=== PATIENT | male | born 1960 | race Caucasian/White ===

== ENCOUNTER 2020-12-04 13:40 | Inpatient (IN) | payer OTHER ==
[~2020-12-04] VITALS: Ht 170.2 cm; Wt 65.5 kg
[2020-12-04] MEDS ORDERED: ACETAMINOPHEN 325 MG TABLET PO PRN (15:30)
[2020-12-04] MEDS ORDERED: DEXTROSE 50%-WATER 25 GM/50 ML SYRINGE IVP PRN (15:45)
[2020-12-04 16:00] VITALS: BP 160/93
[2020-12-04 16:52] VITALS: BP 160/93
[2020-12-04 18:51] LABS: GLUCOMETER DEV NAME(LOC) 2WR.1C; GLUCOSE,POINT OF CARE 132 MG/DL (70-110)
[2020-12-04 19:07] VITALS: BP 152/85
[2020-12-04] MEDS ORDERED: PNEUMOCOCCAL VACCINE POLYVALENT 0.5 ML VIAL [PPSV23] IM. ONE (20:45)
[2020-12-04] MEDS: SENNA 187 MG TABLET PO SCH (21:00)
[2020-12-04] MEDS: DOCUSATE SODIUM 100 MG CAPSULE PO SCH ×2 (21:00→21:25)
[2020-12-04 21:18] VITALS: BP 151/85
[2020-12-04] MEDS: CARVEDILOL 25 MG TABLET PO SCH (21:23)
[2020-12-04] MEDS: PANTOPRAZOLE SODIUM 40 MG DR TABLET PO SCH (21:24)
[2020-12-04] MEDS: ATORVASTATIN CALCIUM 40 MG TABLET PO SCH (21:25)
[2020-12-04] MEDS: INSULIN LISPRO 100 UNITS/ML SQ PRN (21:27)
[2020-12-04] MEDS: INSULIN GLARGINE,HUM.REC.ANLOG 100 UNITS/ML SQ SCH (21:28)
[2020-12-05 02:28] VITALS: BP 153/84
[2020-12-05 05:04] LABS: GLUCOMETER DEV NAME(LOC) 2WR.1C; GLUCOSE,POINT OF CARE 194 MG/DL (70-110)
[2020-12-05 06:28] LABS: GLUCOMETER DEV NAME(LOC) 2WR.2B; GLUCOSE,POINT OF CARE 138 MG/DL (70-110)
[2020-12-05 08:35] LABS: BASOPHILS % (AUTO) 0.7 % (0.0-2.0); EOSINOPHILS % (AUTO) 2.8 % (1.0-6.0); HEMATOCRIT 25.9 % (41-53); HEMOGLOBIN 8.6 g/dL (13.5-17.5); LYMPHOCYTES # (AUTO) 1.6 K/uL (1.0-4.8); LYMPHOCYTES % (AUTO) 26.8 % (22.0-44.0); MEAN CORPUSCULAR HEMOGLOBIN 30.2 pg (26.0-34.0); MEAN CORPUSCULAR HGB CONC 33.3 G/dL (31.0-37.0); MEAN CORPUSCULAR VOLUME 91 fL (80-100); MONOCYTES # (AUTO) 0.6 K/uL (0.1-1.0); MONOCYTES % (AUTO) 9.6 % (2.0-9.0); NEUTROPHILS # (AUTO) 3.6 K/uL (1.8-7.7); NEUTROPHILS % (AUTO) 60.1 % (40.0-70.0); PLATELET COUNT (AUTO) 199 K/uL (150-450); RED BLOOD CELL COUNT(AUTO) 2.85 MIL/uL (4.50-5.90); RED CELL DISTRIBUTION WIDTH 13.3 % (11.5-14.5)
[2020-12-05 08:49] VITALS: BP 150/83
[2020-12-05] MEDS: DOCUSATE SODIUM 100 MG CAPSULE PO SCH ×2 (08:51→20:45)
[2020-12-05] MEDS: VALSARTAN 160 MG TABLET PO SCH (08:51)
[2020-12-05] MEDS: CLOPIDOGREL BISULFATE 75 MG TABLET PO SCH (08:51)
[2020-12-05] MEDS: NIFEdipine 30 MG ER TABLET PO SCH (08:51)
[2020-12-05] MEDS: CARVEDILOL 25 MG TABLET PO SCH ×2 (08:51→20:45)
[2020-12-05 08:53] LABS: ALBUMIN 3.2 g/dL (3.4-5.0); BILIRUBIN,TOTAL 0.3 mg/dL (0.1-1.0); CALCIUM, TOTAL 8.3 mg/dL (8.8-10.5); CREATININE 6.7 mg/dL (0.60-1.30); POTASSIUM 3.6 mmol/L (3.5-5.1); TOTAL PROTEIN, SERUM 6.9 g/dL (6.4-8.2)
[2020-12-05 13:39] LABS: GLUCOMETER DEV NAME(LOC) 2WR.2B; GLUCOSE,POINT OF CARE 136 MG/DL (70-110)
[2020-12-05] MEDS: HEPARIN SODIUM,PORCINE 5,000 UNITS/ML VIAL SQ SCH ×2 (15:03→20:46)
[2020-12-05 16:00] VITALS: BP 134/75
[2020-12-05] MEDS: INSULIN LISPRO 100 UNITS/ML SQ PRN ×2 (17:46→21:14)
[2020-12-05 17:52] LABS: GLUCOMETER DEV NAME(LOC) 2WR.2B; GLUCOSE,POINT OF CARE 167 MG/DL (70-110)
[2020-12-05] MEDS: SENNA 187 MG TABLET PO SCH (20:45)
[2020-12-05] MEDS: ATORVASTATIN CALCIUM 40 MG TABLET PO SCH (20:45)
[2020-12-05] MEDS: PANTOPRAZOLE SODIUM 40 MG DR TABLET PO SCH (20:45)
[2020-12-05 20:55] VITALS: BP 165/90
[2020-12-05 20:59] LABS: GLUCOMETER DEV NAME(LOC) 2WR.2B; GLUCOSE,POINT OF CARE 186 MG/DL (70-110)
[2020-12-05] MEDS: HydrALAZINE HCL 10 MG TABLET PO PRN (20:59)
[2020-12-05] MEDS: INSULIN GLARGINE,HUM.REC.ANLOG 100 UNITS/ML SQ SCH (21:13)
[2020-12-05 23:53] VITALS: BP 155/85
[2020-12-06 08:01] VITALS: BP 154/80
[2020-12-06] MEDS: CARVEDILOL 25 MG TABLET PO SCH ×2 (09:46→20:51)
[2020-12-06] MEDS: CLOPIDOGREL BISULFATE 75 MG TABLET PO SCH (09:46)
[2020-12-06] MEDS: DOCUSATE SODIUM 100 MG CAPSULE PO SCH ×2 (09:46→20:48)
[2020-12-06] MEDS: NIFEdipine 30 MG ER TABLET PO SCH (09:46)
[2020-12-06] MEDS: VALSARTAN 160 MG TABLET PO SCH (09:46)
[2020-12-06] MEDS: HEPARIN SODIUM,PORCINE 5,000 UNITS/ML VIAL SQ SCH ×3 (09:47→20:48)
[2020-12-06 12:33] LABS: GLUCOMETER DEV NAME(LOC) 2WR.1C; GLUCOSE,POINT OF CARE 110 MG/DL (70-110)
[2020-12-06 12:33] LABS: GLUCOMETER DEV NAME(LOC) 2WR.1C; GLUCOSE,POINT OF CARE 121 MG/DL (70-110)
[2020-12-06 16:17] VITALS: BP 135/65
[2020-12-06 18:21] LABS: GLUCOMETER DEV NAME(LOC) 2WR.2B; GLUCOSE,POINT OF CARE 169 MG/DL (70-110)
[2020-12-06] MEDS: INSULIN LISPRO 100 UNITS/ML SQ PRN (18:30)
[2020-12-06] MEDS: ATORVASTATIN CALCIUM 40 MG TABLET PO SCH (20:48)
[2020-12-06] MEDS: PANTOPRAZOLE SODIUM 40 MG DR TABLET PO SCH (20:48)
[2020-12-06 20:50] VITALS: BP 153/86
[2020-12-06] MEDS: SENNA 187 MG TABLET PO SCH (20:53)
[2020-12-06] MEDS: INSULIN GLARGINE,HUM.REC.ANLOG 100 UNITS/ML SQ SCH (20:53)
[2020-12-06 23:29] VITALS: BP 150/78
[2020-12-07 05:14] LABS: GLUCOMETER DEV NAME(LOC) 2WR.1C; GLUCOSE,POINT OF CARE 131 MG/DL (70-110)
[2020-12-07 06:17] LABS: GLUCOMETER DEV NAME(LOC) 2WR.1C; GLUCOSE,POINT OF CARE 108 MG/DL (70-110)
[2020-12-07] MEDS: VALSARTAN 160 MG TABLET PO SCH (07:52)
[2020-12-07] MEDS: NIFEdipine 30 MG ER TABLET PO SCH (07:52)
[2020-12-07] MEDS: CLOPIDOGREL BISULFATE 75 MG TABLET PO SCH (07:52)
[2020-12-07] MEDS: DOCUSATE SODIUM 100 MG CAPSULE PO SCH ×2 (07:52→20:58)
[2020-12-07] MEDS: CARVEDILOL 25 MG TABLET PO SCH ×2 (07:52→20:58)
[2020-12-07] MEDS: HEPARIN SODIUM,PORCINE 5,000 UNITS/ML VIAL SQ SCH ×3 (07:53→20:58)
[2020-12-07 09:51] VITALS: BP 133/79
[2020-12-07 13:05] LABS: GLUCOMETER DEV NAME(LOC) 2WR.1C; GLUCOSE,POINT OF CARE 134 MG/DL (70-110)
[2020-12-07 16:50] VITALS: BP 132/77
[2020-12-07] MEDS: INSULIN LISPRO 100 UNITS/ML SQ PRN (17:40)
[2020-12-07 19:51] LABS: GLUCOMETER DEV NAME(LOC) 2WR.1C; GLUCOSE,POINT OF CARE 163 MG/DL (70-110)
[2020-12-07 20:30] VITALS: BP 165/85
[2020-12-07] MEDS: SENNA 187 MG TABLET PO SCH (20:58)
[2020-12-07] MEDS: ATORVASTATIN CALCIUM 40 MG TABLET PO SCH (20:58)
[2020-12-07] MEDS: PANTOPRAZOLE SODIUM 40 MG DR TABLET PO SCH (20:58)
[2020-12-07] MEDS: INSULIN GLARGINE,HUM.REC.ANLOG 100 UNITS/ML SQ SCH (21:04)
[2020-12-07 21:35] LABS: GLUCOMETER DEV NAME(LOC) 2WR.2B; GLUCOSE,POINT OF CARE 100 MG/DL (70-110)
[2020-12-08 00:45] VITALS: BP 184/90
[2020-12-08] MEDS: HydrALAZINE HCL 10 MG TABLET PO PRN ×2 (00:47→23:06)
[2020-12-08 03:30] VITALS: BP 152/87
[2020-12-08] MEDS: NIFEdipine 30 MG ER TABLET PO SCH (07:57)
[2020-12-08] MEDS: CLOPIDOGREL BISULFATE 75 MG TABLET PO SCH (07:57)
[2020-12-08] MEDS: HEPARIN SODIUM,PORCINE 5,000 UNITS/ML VIAL SQ SCH ×3 (07:57→22:13)
[2020-12-08] MEDS: CARVEDILOL 25 MG TABLET PO SCH ×2 (07:57→22:12)
[2020-12-08] MEDS: VALSARTAN 160 MG TABLET PO SCH (07:57)
[2020-12-08] MEDS: DOCUSATE SODIUM 100 MG CAPSULE PO SCH ×2 (07:59→22:11)
[2020-12-08 08:03] VITALS: BP 180/92
[2020-12-08 09:00] VITALS: BP 129/68
[2020-12-08 16:15] LABS: GLUCOMETER DEV NAME(LOC) 2WR.1C; GLUCOSE,POINT OF CARE 104 MG/DL (70-110)
[2020-12-08 16:15] LABS: GLUCOMETER DEV NAME(LOC) 2WR.1C; GLUCOSE,POINT OF CARE 137 MG/DL (70-110)
[2020-12-08 17:08] VITALS: BP 137/78
[2020-12-08 17:43] LABS: GLUCOMETER DEV NAME(LOC) 2WR.2B; GLUCOSE,POINT OF CARE 156 MG/DL (70-110)
[2020-12-08] MEDS: SENNA 187 MG TABLET PO SCH (22:11)
[2020-12-08] MEDS: PANTOPRAZOLE SODIUM 40 MG DR TABLET PO SCH (22:12)
[2020-12-08] MEDS: ATORVASTATIN CALCIUM 40 MG TABLET PO SCH (22:12)
[2020-12-08] MEDS: INSULIN GLARGINE,HUM.REC.ANLOG 100 UNITS/ML SQ SCH (22:22)
[2020-12-08] MEDS: INSULIN LISPRO 100 UNITS/ML SQ PRN (22:23)
[2020-12-08 22:33] LABS: GLUCOMETER DEV NAME(LOC) 2WR.1C; GLUCOSE,POINT OF CARE 153 MG/DL (70-110)
[2020-12-08 23:00] VITALS: BP 162/99
[2020-12-09] VITALS (7 sets, daily range): BP systolic 153–172; BP diastolic 58–98
[2020-12-09 05:57] LABS: GLUCOMETER DEV NAME(LOC) 2WR.1C; GLUCOSE,POINT OF CARE 167 MG/DL (70-110)
[2020-12-09] MEDS: NIFEdipine 30 MG ER TABLET PO SCH (08:03)
[2020-12-09] MEDS: HEPARIN SODIUM,PORCINE 5,000 UNITS/ML VIAL SQ SCH ×3 (08:03→20:08)
[2020-12-09] MEDS: CARVEDILOL 25 MG TABLET PO SCH ×2 (08:03→20:08)
[2020-12-09] MEDS: VALSARTAN 160 MG TABLET PO SCH ×2 (08:03→13:03)
[2020-12-09] MEDS: CLOPIDOGREL BISULFATE 75 MG TABLET PO SCH (08:03)
[2020-12-09] MEDS: INSULIN LISPRO 100 UNITS/ML SQ PRN ×2 (08:05→17:27)
[2020-12-09] MEDS: DOCUSATE SODIUM 100 MG CAPSULE PO SCH ×2 (08:06→20:08)
[2020-12-09] MEDS: CITALOPRAM HYDROBROMIDE 10 MG TABLET PO SCH (13:06)
[2020-12-09 15:19] LABS: GLUCOMETER DEV NAME(LOC) 2WR.2B; GLUCOSE,POINT OF CARE 112 MG/DL (70-110)
[2020-12-09] MEDS: FUROSEMIDE 20 MG TABLET PO SCH (16:22)
[2020-12-09 18:18] LABS: GLUCOMETER DEV NAME(LOC) 2WR.1C; GLUCOSE,POINT OF CARE 141 MG/DL (70-110)
[2020-12-09] MEDS: ATORVASTATIN CALCIUM 40 MG TABLET PO SCH (20:08)
[2020-12-09] MEDS: PANTOPRAZOLE SODIUM 40 MG DR TABLET PO SCH (20:08)
[2020-12-09] MEDS: SENNA 187 MG TABLET PO SCH (20:09)
[2020-12-09] MEDS: INSULIN GLARGINE,HUM.REC.ANLOG 100 UNITS/ML SQ SCH (20:17)
[2020-12-09] MEDS: HydrALAZINE HCL 10 MG TABLET PO PRN (22:25)
[2020-12-10 01:07] LABS: GLUCOMETER DEV NAME(LOC) 2WR.2B; GLUCOSE,POINT OF CARE 118 MG/DL (70-110)
[2020-12-10 04:00] VITALS: BP 178/98
[2020-12-10 05:00] VITALS: BP_SYST 178; BP_SYST 198; BP_DIAS 102
[2020-12-10] MEDS: HydrALAZINE HCL 10 MG TABLET PO PRN (05:36)
[2020-12-10 05:57] LABS: GLUCOMETER DEV NAME(LOC) 2WR.1C; GLUCOSE,POINT OF CARE 121 MG/DL (70-110)
[2020-12-10 06:27] VITALS: BP 178/94
[2020-12-10 06:49] LABS: CALCIUM, TOTAL 8.1 mg/dL (8.8-10.5); CREATININE 6.77 mg/dL (0.60-1.30); PHOSPHORUS 4.7 mg/dL (2.5-4.9); POTASSIUM 4.2 mmol/L (3.5-5.1)
[2020-12-10 07:18] LABS: % IRON SATURATION 30.4 % (30-44)
[2020-12-10] MEDS: VALSARTAN 160 MG TABLET PO SCH (08:36)
[2020-12-10] MEDS: CLOPIDOGREL BISULFATE 75 MG TABLET PO SCH (08:36)
[2020-12-10] MEDS: HEPARIN SODIUM,PORCINE 5,000 UNITS/ML VIAL SQ SCH ×3 (08:36→20:47)
[2020-12-10] MEDS: NIFEdipine 30 MG ER TABLET PO SCH (08:36)
[2020-12-10] MEDS: DOCUSATE SODIUM 100 MG CAPSULE PO SCH ×2 (08:36→20:48)
[2020-12-10] MEDS: CITALOPRAM HYDROBROMIDE 10 MG TABLET PO SCH (08:36)
[2020-12-10] MEDS: FUROSEMIDE 20 MG TABLET PO SCH (08:36)
[2020-12-10] MEDS: CARVEDILOL 25 MG TABLET PO SCH ×2 (08:41→20:48)
[2020-12-10 11:58] VITALS: BP 147/91
[2020-12-10 12:39] LABS: GLUCOMETER DEV NAME(LOC) 2WR.2B; GLUCOSE,POINT OF CARE 123 MG/DL (70-110)
[2020-12-10] MEDS: CALCITRIOL 0.25 MCG CAPSULE PO SCH (15:55)
[2020-12-10 16:30] VITALS: BP 141/89
[2020-12-10 17:54] LABS: GLUCOMETER DEV NAME(LOC) 2WR.2B; GLUCOSE,POINT OF CARE 139 MG/DL (70-110)
[2020-12-10 20:40] VITALS: BP 140/78
[2020-12-10] MEDS: ATORVASTATIN CALCIUM 40 MG TABLET PO SCH (20:47)
[2020-12-10] MEDS: SENNA 187 MG TABLET PO SCH (20:48)
[2020-12-10] MEDS: PANTOPRAZOLE SODIUM 40 MG DR TABLET PO SCH (20:48)
[2020-12-10] MEDS: INSULIN GLARGINE,HUM.REC.ANLOG 100 UNITS/ML SQ SCH (20:54)
[2020-12-10] MEDS: INSULIN LISPRO 100 UNITS/ML SQ PRN (20:55)
[2020-12-10 22:05] LABS: GLUCOMETER DEV NAME(LOC) 2WR.2B; GLUCOSE,POINT OF CARE 154 MG/DL (70-110)
[2020-12-11 00:19] VITALS: BP 123/69
[2020-12-11 05:59] LABS: GLUCOMETER DEV NAME(LOC) 2WR.1C; GLUCOSE,POINT OF CARE 138 MG/DL (70-110)
[2020-12-11 07:33] VITALS: BP 161/79
[2020-12-11] MEDS: CALCITRIOL 0.25 MCG CAPSULE PO SCH (08:36)
[2020-12-11] MEDS: DOCUSATE SODIUM 100 MG CAPSULE PO SCH ×2 (08:36→20:44)
[2020-12-11] MEDS: VALSARTAN 160 MG TABLET PO SCH (08:36)
[2020-12-11] MEDS: CARVEDILOL 25 MG TABLET PO SCH ×2 (08:37→21:06)
[2020-12-11] MEDS: FUROSEMIDE 20 MG TABLET PO SCH (08:37)
[2020-12-11] MEDS: CITALOPRAM HYDROBROMIDE 10 MG TABLET PO SCH (08:37)
[2020-12-11] MEDS: CLOPIDOGREL BISULFATE 75 MG TABLET PO SCH (08:37)
[2020-12-11] MEDS: NIFEdipine 60 MG ER TABLET PO SCH (08:37)
[2020-12-11] MEDS: HEPARIN SODIUM,PORCINE 5,000 UNITS/ML VIAL SQ SCH ×3 (08:37→20:44)
[2020-12-11 13:33] LABS: GLUCOMETER DEV NAME(LOC) 2WR.2B; GLUCOSE,POINT OF CARE 132 MG/DL (70-110)
[2020-12-11 14:00] VITALS: BP 136/69
[2020-12-11 17:56] LABS: GLUCOMETER DEV NAME(LOC) 2WR.1C; GLUCOSE,POINT OF CARE 162 MG/DL (70-110)
[2020-12-11] MEDS: INSULIN LISPRO 100 UNITS/ML SQ PRN ×2 (17:56→21:13)
[2020-12-11 19:46] VITALS: BP 133/72
[2020-12-11] MEDS: SENNA 187 MG TABLET PO SCH (20:44)
[2020-12-11] MEDS: PANTOPRAZOLE SODIUM 40 MG DR TABLET PO SCH (20:44)
[2020-12-11] MEDS: ATORVASTATIN CALCIUM 40 MG TABLET PO SCH (21:06)
[2020-12-11] MEDS: INSULIN GLARGINE,HUM.REC.ANLOG 100 UNITS/ML SQ SCH (21:08)
[2020-12-12] VITALS: BP 137/75
[2020-12-12 00:22] LABS: GLUCOMETER DEV NAME(LOC) 2WR.2B; GLUCOSE,POINT OF CARE 147 MG/DL (70-110)
[2020-12-12 06:07] LABS: GLUCOMETER DEV NAME(LOC) 2WR.2B; GLUCOSE,POINT OF CARE 133 MG/DL (70-110)
[2020-12-12 06:26] LABS: HEMATOCRIT 26.4 % (41-53); HEMOGLOBIN 8.7 g/dL (13.5-17.5)
[2020-12-12 08:15] VITALS: BP 159/89
[2020-12-12] MEDS: DOCUSATE SODIUM 100 MG CAPSULE PO SCH ×2 (09:21→21:00)
[2020-12-12] MEDS: VALSARTAN 160 MG TABLET PO SCH (09:21)
[2020-12-12] MEDS: CARVEDILOL 25 MG TABLET PO SCH ×2 (09:21→21:20)
[2020-12-12] MEDS: CITALOPRAM HYDROBROMIDE 10 MG TABLET PO SCH (09:21)
[2020-12-12] MEDS: HEPARIN SODIUM,PORCINE 5,000 UNITS/ML VIAL SQ SCH ×3 (09:22→21:20)
[2020-12-12] MEDS: CALCITRIOL 0.25 MCG CAPSULE PO SCH (09:22)
[2020-12-12] MEDS: CLOPIDOGREL BISULFATE 75 MG TABLET PO SCH (09:22)
[2020-12-12] MEDS: NIFEdipine 60 MG ER TABLET PO SCH (09:22)
[2020-12-12] MEDS: FUROSEMIDE 20 MG TABLET PO SCH (09:23)
[2020-12-12] MEDS: INSULIN LISPRO 100 UNITS/ML SQ PRN ×3 (09:37→21:24)
[2020-12-12] MEDS: HydrALAZINE HCL 10 MG TABLET PO PRN (16:15)
[2020-12-12 16:36] VITALS: BP 179/86
[2020-12-12 18:08] LABS: GLUCOMETER DEV NAME(LOC) 2WR.2B; GLUCOSE,POINT OF CARE 157 MG/DL (70-110)
[2020-12-12 20:49] VITALS: BP 132/80
[2020-12-12] MEDS: SENNA 187 MG TABLET PO SCH (21:00)
[2020-12-12] MEDS: PANTOPRAZOLE SODIUM 40 MG DR TABLET PO SCH (21:21)
[2020-12-12] MEDS: ATORVASTATIN CALCIUM 40 MG TABLET PO SCH (21:21)
[2020-12-12] MEDS: INSULIN GLARGINE,HUM.REC.ANLOG 100 UNITS/ML SQ SCH (21:24)
[2020-12-12 21:53] LABS: GLUCOMETER DEV NAME(LOC) 2WR.1C; GLUCOSE,POINT OF CARE 197 MG/DL (70-110)
[2020-12-13] VITALS: BP 113/66
[2020-12-13 03:12] VITALS: BP 133/66
[2020-12-13 06:12] LABS: GLUCOMETER DEV NAME(LOC) 2WR.2B; GLUCOSE,POINT OF CARE 158 MG/DL (70-110)
[2020-12-13 07:05] LABS: BASOPHILS % (AUTO) 0.9 % (0.0-2.0); EOSINOPHILS % (AUTO) 1.6 % (1.0-6.0); HEMOGLOBIN 8.9 g/dL (13.5-17.5); LYMPHOCYTES # (AUTO) 1.4 K/uL (1.0-4.8); LYMPHOCYTES % (AUTO) 25.6 % (22.0-44.0); MEAN CORPUSCULAR HEMOGLOBIN 30.1 pg (26.0-34.0); MEAN CORPUSCULAR HGB CONC 33.2 G/dL (31.0-37.0); MEAN CORPUSCULAR VOLUME 91 fL (80-100); MONOCYTES # (AUTO) 0.7 K/uL (0.1-1.0); MONOCYTES % (AUTO) 12.6 % (2.0-9.0); NEUTROPHILS # (AUTO) 3.3 K/uL (1.8-7.7); NEUTROPHILS % (AUTO) 59.3 % (40.0-70.0); PLATELET COUNT (AUTO) 209 K/uL (150-450); RED BLOOD CELL COUNT(AUTO) 2.98 MIL/uL (4.50-5.90); RED CELL DISTRIBUTION WIDTH 13.7 % (11.5-14.5)
[2020-12-13 07:23] LABS: CALCIUM, TOTAL 8.7 mg/dL (8.8-10.5); CREATININE 7.45 mg/dL (0.60-1.30)
[2020-12-13 08:01] VITALS: BP 154/67
[2020-12-13] MEDS: FUROSEMIDE 20 MG TABLET PO SCH (08:30)
[2020-12-13] MEDS: NIFEdipine 60 MG ER TABLET PO SCH (08:30)
[2020-12-13] MEDS: CLOPIDOGREL BISULFATE 75 MG TABLET PO SCH (08:30)
[2020-12-13] MEDS: CALCITRIOL 0.25 MCG CAPSULE PO SCH (08:30)
[2020-12-13] MEDS: CARVEDILOL 25 MG TABLET PO SCH ×2 (08:30→20:57)
[2020-12-13] MEDS: CITALOPRAM HYDROBROMIDE 10 MG TABLET PO SCH (08:30)
[2020-12-13] MEDS: HEPARIN SODIUM,PORCINE 5,000 UNITS/ML VIAL SQ SCH ×3 (08:31→20:56)
[2020-12-13] MEDS: INSULIN LISPRO 100 UNITS/ML SQ PRN ×3 (08:32→21:05)
[2020-12-13] MEDS: DOCUSATE SODIUM 100 MG CAPSULE PO SCH ×2 (08:36→20:56)
[2020-12-13 13:16] LABS: GLUCOMETER DEV NAME(LOC) 2WR.2B; GLUCOSE,POINT OF CARE 120 MG/DL (70-110)
[2020-12-13 16:02] VITALS: BP 144/80
[2020-12-13 20:52] VITALS: BP 155/79
[2020-12-13] MEDS: SENNA 187 MG TABLET PO SCH (20:56)
[2020-12-13] MEDS: PANTOPRAZOLE SODIUM 40 MG DR TABLET PO SCH (20:57)
[2020-12-13] MEDS: ATORVASTATIN CALCIUM 40 MG TABLET PO SCH (21:03)
[2020-12-13] MEDS: INSULIN GLARGINE,HUM.REC.ANLOG 100 UNITS/ML SQ SCH (21:04)
[2020-12-13 22:32] LABS: GLUCOMETER DEV NAME(LOC) 2WR.2B; GLUCOSE,POINT OF CARE 149 MG/DL (70-110)
[2020-12-14 00:45] VITALS: BP 146/80
[2020-12-14 03:14] LABS: GLUCOMETER DEV NAME(LOC) 2WR.1C; GLUCOSE,POINT OF CARE 169 MG/DL (70-110)
[2020-12-14 06:10] LABS: GLUCOMETER DEV NAME(LOC) 2WR.1C; GLUCOSE,POINT OF CARE 115 MG/DL (70-110)
[2020-12-14 07:32] VITALS: BP 167/91
[2020-12-14] MEDS: CLOPIDOGREL BISULFATE 75 MG TABLET PO SCH (08:10)
[2020-12-14] MEDS: HEPARIN SODIUM,PORCINE 5,000 UNITS/ML VIAL SQ SCH ×3 (08:10→21:04)
[2020-12-14] MEDS: CARVEDILOL 25 MG TABLET PO SCH ×2 (08:10→21:04)
[2020-12-14] MEDS: CALCITRIOL 0.25 MCG CAPSULE PO SCH (08:10)
[2020-12-14] MEDS: FUROSEMIDE 20 MG TABLET PO SCH (08:10)
[2020-12-14] MEDS: NIFEdipine 60 MG ER TABLET PO SCH (08:10)
[2020-12-14] MEDS: CITALOPRAM HYDROBROMIDE 10 MG TABLET PO SCH (08:11)
[2020-12-14 10:49] VITALS: BP 156/85
[2020-12-14 11:02] LABS: GLUCOMETER DEV NAME(LOC) 2WR.2B; GLUCOSE,POINT OF CARE 210 MG/DL (70-110)
[2020-12-14] MEDS: INSULIN LISPRO 100 UNITS/ML SQ PRN ×3 (11:43→21:11)
[2020-12-14 14:47] VITALS: BP 139/51
[2020-12-14 18:53] LABS: GLUCOMETER DEV NAME(LOC) 2WR.2B; GLUCOSE,POINT OF CARE 154 MG/DL (70-110)
[2020-12-14 21:00] VITALS: BP 141/78
[2020-12-14] MEDS: PANTOPRAZOLE SODIUM 40 MG DR TABLET PO SCH (21:04)
[2020-12-14] MEDS: ATORVASTATIN CALCIUM 40 MG TABLET PO SCH (21:04)
[2020-12-14] MEDS: INSULIN GLARGINE,HUM.REC.ANLOG 100 UNITS/ML SQ SCH (21:11)
[2020-12-14 21:53] LABS: GLUCOMETER DEV NAME(LOC) 2WR.1C; GLUCOSE,POINT OF CARE 193 MG/DL (70-110)
[2020-12-15 00:40] VITALS: BP 150/79
[2020-12-15 06:12] LABS: GLUCOMETER DEV NAME(LOC) 2WR.1C; GLUCOSE,POINT OF CARE 163 MG/DL (70-110)
[2020-12-15 06:59] LABS: CALCIUM, TOTAL 8.7 mg/dL (8.8-10.5); CREATININE 7.59 mg/dL (0.60-1.30); MAGNESIUM 2.1 mg/dL (1.80-2.40); PHOSPHORUS 5.4 mg/dL (2.5-4.9); POTASSIUM 4.2 mmol/L (3.5-5.1)
[2020-12-15 07:15] VITALS: BP 112/83
[2020-12-15] MEDS: INSULIN LISPRO 100 UNITS/ML SQ PRN ×3 (07:54→21:49)
[2020-12-15] MEDS: HEPARIN SODIUM,PORCINE 5,000 UNITS/ML VIAL SQ SCH ×3 (07:55→21:31)
[2020-12-15] MEDS: NIFEdipine 60 MG ER TABLET PO SCH (07:56)
[2020-12-15] MEDS: FUROSEMIDE 20 MG TABLET PO SCH (07:56)
[2020-12-15] MEDS: CITALOPRAM HYDROBROMIDE 10 MG TABLET PO SCH (07:56)
[2020-12-15] MEDS: CARVEDILOL 25 MG TABLET PO SCH ×2 (07:56→21:31)
[2020-12-15] MEDS: CALCITRIOL 0.25 MCG CAPSULE PO SCH (07:56)
[2020-12-15] MEDS: CLOPIDOGREL BISULFATE 75 MG TABLET PO SCH (07:56)
[2020-12-15] MEDS: HydrALAZINE HCL 10 MG TABLET PO PRN (11:46)
[2020-12-15 12:17] LABS: GLUCOMETER DEV NAME(LOC) 2WR.2B; GLUCOSE,POINT OF CARE 110 MG/DL (70-110)
[2020-12-15] MEDS: SEVELAMER CARBONATE 800 MG TABLET PO SCH ×2 (12:38→17:41)
[2020-12-15 16:02] VITALS: BP 152/82
[2020-12-15 18:35] LABS: GLUCOMETER DEV NAME(LOC) 2WR.1C; GLUCOSE,POINT OF CARE 154 MG/DL (70-110)
[2020-12-15 21:25] VITALS: BP 136/74
[2020-12-15] MEDS: ATORVASTATIN CALCIUM 40 MG TABLET PO SCH (21:31)
[2020-12-15] MEDS: PANTOPRAZOLE SODIUM 40 MG DR TABLET PO SCH (21:31)
[2020-12-15] MEDS: INSULIN GLARGINE,HUM.REC.ANLOG 100 UNITS/ML SQ SCH (21:33)
[2020-12-15 22:23] LABS: GLUCOMETER DEV NAME(LOC) 2WR.1C; GLUCOSE,POINT OF CARE 151 MG/DL (70-110)
[2020-12-16 04:45] VITALS: BP 174/89
[2020-12-16] MEDS: HydrALAZINE HCL 10 MG TABLET PO PRN (04:45)
[2020-12-16 05:56] LABS: GLUCOMETER DEV NAME(LOC) 2WR.2B; GLUCOSE,POINT OF CARE 118 MG/DL (70-110)
[2020-12-16 06:00] VITALS: BP 160/79
[2020-12-16] MEDS: HEPARIN SODIUM,PORCINE 5,000 UNITS/ML VIAL SQ SCH ×3 (07:42→20:48)
[2020-12-16] MEDS: CALCITRIOL 0.25 MCG CAPSULE PO SCH (07:43)
[2020-12-16] MEDS: CARVEDILOL 25 MG TABLET PO SCH ×2 (07:43→20:45)
[2020-12-16] MEDS: FUROSEMIDE 20 MG TABLET PO SCH (07:43)
[2020-12-16] MEDS: CLOPIDOGREL BISULFATE 75 MG TABLET PO SCH (07:43)
[2020-12-16] MEDS: NIFEdipine 60 MG ER TABLET PO SCH (07:43)
[2020-12-16] MEDS: CITALOPRAM HYDROBROMIDE 10 MG TABLET PO SCH (07:43)
[2020-12-16] MEDS: SEVELAMER CARBONATE 800 MG TABLET PO SCH ×3 (07:43→17:27)
[2020-12-16 08:35] VITALS: BP 152/87
[2020-12-16 13:37] LABS: GLUCOMETER DEV NAME(LOC) 2WR.1C; GLUCOSE,POINT OF CARE 134 MG/DL (70-110)
[2020-12-16 16:24] VITALS: BP 143/76
[2020-12-16] MEDS: INSULIN LISPRO 100 UNITS/ML SQ PRN ×2 (17:28→21:11)
[2020-12-16 18:29] LABS: GLUCOMETER DEV NAME(LOC) 2WR.1C; GLUCOSE,POINT OF CARE 161 MG/DL (70-110)
[2020-12-16 20:18] LABS: APPEARANCE,URINE CLEAR (CLEAR); BILIRUBIN,URINE NEGATIVE (NEGATIVE); GLUCOSE, URINE (UA) 100 mg/dL (NEGATIVE); KETONES,URINE NEGATIVE (NEGATIVE); LEUKOCYTE ESTERASE ,URINE NEGATIVE (NEGATIVE); NITRATE,URINE NEGATIVE (NEGATIVE); OCCULT BLOOD,URINE TRACE (NEGATIVE); PROTEIN,URINE SEE CONFIRM (NEGATIVE); UROBILINOGEN,URINE 0.2 mg/dL (<=1.0)
[2020-12-16 20:44] LABS: SULFOSALICYLIC ACID,URINE 3+ (Negative)
[2020-12-16] MEDS: ATORVASTATIN CALCIUM 40 MG TABLET PO SCH (20:44)
[2020-12-16] MEDS: BACLOFEN 10 MG TABLET PO SCH (20:45)
[2020-12-16] MEDS: PANTOPRAZOLE SODIUM 40 MG DR TABLET PO SCH (20:45)
[2020-12-16 20:47] LABS: RBC,URINE 0-2 /HPF (0-2); WBC,URINE None Seen /HPF (0-5)
[2020-12-16 20:48] LABS: BACTERIA,URINE None Seen /HPF (None Seen)
[2020-12-16 20:54] LABS: SQUAMOUS EPITHELIAL CELL,UR None Seen /LPF (None Seen)
[2020-12-16] MEDS: INSULIN GLARGINE,HUM.REC.ANLOG 100 UNITS/ML SQ SCH (21:11)
[2020-12-16 21:12] VITALS: BP 135/72
[2020-12-16 21:29] LABS: GLUCOMETER DEV NAME(LOC) 2WR.1C; GLUCOSE,POINT OF CARE 144 MG/DL (70-110)
[2020-12-17 01:00] VITALS: BP 151/86
[2020-12-17 06:10] LABS: GLUCOMETER DEV NAME(LOC) 2WR.2B; GLUCOSE,POINT OF CARE 105 MG/DL (70-110)
[2020-12-17 07:07] LABS: CALCIUM, TOTAL 8.6 mg/dL (8.8-10.5); CREATININE 7.74 mg/dL (0.60-1.30); POTASSIUM 4.1 mmol/L (3.5-5.1)
[2020-12-17] MEDS: HydrALAZINE HCL 10 MG TABLET PO PRN (07:15)
[2020-12-17] MEDS: CALCITRIOL 0.25 MCG CAPSULE PO SCH (07:51)
[2020-12-17] MEDS: CARVEDILOL 25 MG TABLET PO SCH ×2 (07:51→20:26)
[2020-12-17] MEDS: FUROSEMIDE 20 MG TABLET PO SCH (07:51)
[2020-12-17] MEDS: SEVELAMER CARBONATE 800 MG TABLET PO SCH ×3 (07:51→17:53)
[2020-12-17] MEDS: NIFEdipine 60 MG ER TABLET PO SCH (07:52)
[2020-12-17] MEDS: CLOPIDOGREL BISULFATE 75 MG TABLET PO SCH (07:52)
[2020-12-17] MEDS: HEPARIN SODIUM,PORCINE 5,000 UNITS/ML VIAL SQ SCH ×3 (07:52→20:26)
[2020-12-17] MEDS: CITALOPRAM HYDROBROMIDE 10 MG TABLET PO SCH (07:52)
[2020-12-17] MEDS: BACLOFEN 10 MG TABLET PO SCH ×2 (07:52→20:26)
[2020-12-17 09:44] VITALS: BP 151/94
[2020-12-17] MEDS ORDERED: HydrALAZINE HCL 25 MG TABLET PO ONE (10:30)
[2020-12-17 12:47] LABS: GLUCOMETER DEV NAME(LOC) 2WR.2B; GLUCOSE,POINT OF CARE 122 MG/DL (70-110)
[2020-12-17 16:13] VITALS: BP 102/73
[2020-12-17 19:14] LABS: GLUCOMETER DEV NAME(LOC) 2WR.2B; GLUCOSE,POINT OF CARE 131 MG/DL (70-110)
[2020-12-17 20:20] VITALS: BP 143/80
[2020-12-17] MEDS: PANTOPRAZOLE SODIUM 40 MG DR TABLET PO SCH (20:26)
[2020-12-17] MEDS: ATORVASTATIN CALCIUM 40 MG TABLET PO SCH (20:26)
[2020-12-17] MEDS: INSULIN GLARGINE,HUM.REC.ANLOG 100 UNITS/ML SQ SCH (20:34)
[2020-12-17] MEDS: INSULIN LISPRO 100 UNITS/ML SQ PRN (20:35)
[2020-12-17 22:05] LABS: GLUCOMETER DEV NAME(LOC) 2WR.1C; GLUCOSE,POINT OF CARE 147 MG/DL (70-110)
[2020-12-17 22:46] LABS: CREATININE,URINE 76.9 mg/dL (30.0-125.0)
[2020-12-17 22:49] LABS: CREATININE,SERUM FOR CRCL 7.74 mg/dL (0.60-1.30)
[2020-12-18 05:30] VITALS: BP 171/92
[2020-12-18] MEDS: HydrALAZINE HCL 25 MG TABLET PO PRN ×2 (05:34→19:01)
[2020-12-18 05:50] LABS: GLUCOMETER DEV NAME(LOC) 2WR.1C; GLUCOSE,POINT OF CARE 102 MG/DL (70-110)
[2020-12-18 06:22] VITALS: BP 158/90
[2020-12-18 08:00] VITALS: BP 147/80
[2020-12-18] MEDS: CARVEDILOL 25 MG TABLET PO SCH ×2 (08:09→21:06)
[2020-12-18] MEDS: SEVELAMER CARBONATE 800 MG TABLET PO SCH ×3 (08:09→16:14)
[2020-12-18] MEDS: CLOPIDOGREL BISULFATE 75 MG TABLET PO SCH (08:09)
[2020-12-18] MEDS: FUROSEMIDE 20 MG TABLET PO SCH (08:10)
[2020-12-18] MEDS: HEPARIN SODIUM,PORCINE 5,000 UNITS/ML VIAL SQ SCH ×3 (08:10→21:07)
[2020-12-18] MEDS: NIFEdipine 60 MG ER TABLET PO SCH (08:10)
[2020-12-18] MEDS: CITALOPRAM HYDROBROMIDE 10 MG TABLET PO SCH (08:10)
[2020-12-18] MEDS: BACLOFEN 10 MG TABLET PO SCH ×2 (08:10→21:07)
[2020-12-18] MEDS: CALCITRIOL 0.25 MCG CAPSULE PO SCH (08:13)
[2020-12-18] MEDS: INSULIN LISPRO 100 UNITS/ML SQ PRN ×3 (11:55→21:10)
[2020-12-18 12:03] LABS: GLUCOMETER DEV NAME(LOC) 2WR.2B; GLUCOSE,POINT OF CARE 184 MG/DL (70-110)
[2020-12-18 15:57] VITALS: BP 161/82
[2020-12-18 17:52] LABS: GLUCOMETER DEV NAME(LOC) 2WR.2B; GLUCOSE,POINT OF CARE 170 MG/DL (70-110)
[2020-12-18] MEDS: ATORVASTATIN CALCIUM 40 MG TABLET PO SCH (21:06)
[2020-12-18] MEDS: INSULIN GLARGINE,HUM.REC.ANLOG 100 UNITS/ML SQ SCH (21:10)
[2020-12-18] MEDS: PANTOPRAZOLE SODIUM 40 MG DR TABLET PO SCH (21:12)
[2020-12-18 21:15] VITALS: BP 163/97
[2020-12-18 22:08] LABS: GLUCOMETER DEV NAME(LOC) 2WR.2B; GLUCOSE,POINT OF CARE 164 MG/DL (70-110)
[2020-12-19 05:03] VITALS: BP 115/67
[2020-12-19 06:22] LABS: GLUCOMETER DEV NAME(LOC) 2WR.2B; GLUCOSE,POINT OF CARE 126 MG/DL (70-110)
[2020-12-19] MEDS: SEVELAMER CARBONATE 800 MG TABLET PO SCH ×3 (08:00→18:05)
[2020-12-19] MEDS: INSULIN LISPRO 100 UNITS/ML SQ PRN ×3 (08:05→20:33)
[2020-12-19] MEDS: BACLOFEN 10 MG TABLET PO SCH ×2 (08:13→20:29)
[2020-12-19] MEDS: FUROSEMIDE 20 MG TABLET PO SCH (08:13)
[2020-12-19] MEDS: CITALOPRAM HYDROBROMIDE 10 MG TABLET PO SCH (08:13)
[2020-12-19] MEDS: CARVEDILOL 25 MG TABLET PO SCH ×2 (08:13→20:29)
[2020-12-19] MEDS: CALCITRIOL 0.25 MCG CAPSULE PO SCH (08:14)
[2020-12-19] MEDS: NIFEdipine 60 MG ER TABLET PO SCH (08:14)
[2020-12-19] MEDS: HEPARIN SODIUM,PORCINE 5,000 UNITS/ML VIAL SQ SCH ×3 (08:14→20:29)
[2020-12-19] MEDS: CLOPIDOGREL BISULFATE 75 MG TABLET PO SCH (08:14)
[2020-12-19 08:25] VITALS: BP 135/66
[2020-12-19 08:46] LABS: BASOPHILS % (AUTO) 0.6 % (0.0-2.0); EOSINOPHILS % (AUTO) 1.2 % (1.0-6.0); HEMOGLOBIN 9.6 g/dL (13.5-17.5); LYMPHOCYTES # (AUTO) 1.1 K/uL (1.0-4.8); LYMPHOCYTES % (AUTO) 14.9 % (22.0-44.0); MEAN CORPUSCULAR HEMOGLOBIN 30.3 pg (26.0-34.0); MEAN CORPUSCULAR HGB CONC 33.2 G/dL (31.0-37.0); MEAN CORPUSCULAR VOLUME 91 fL (80-100); MONOCYTES # (AUTO) 0.5 K/uL (0.1-1.0); MONOCYTES % (AUTO) 6.3 % (2.0-9.0); NEUTROPHILS # (AUTO) 5.6 K/uL (1.8-7.7); PLATELET COUNT (AUTO) 224 K/uL (150-450); RED BLOOD CELL COUNT(AUTO) 3.17 MIL/uL (4.50-5.90); RED CELL DISTRIBUTION WIDTH 14.1 % (11.5-14.5)
[2020-12-19 08:58] LABS: CALCIUM, TOTAL 8.7 mg/dL (8.8-10.5); CREATININE 8.17 mg/dL (0.60-1.30); PHOSPHORUS 4.8 mg/dL (2.5-4.9); POTASSIUM 4.4 mmol/L (3.5-5.1)
[2020-12-19 11:53] LABS: GLUCOMETER DEV NAME(LOC) 2WR.2B; GLUCOSE,POINT OF CARE 163 MG/DL (70-110)
[2020-12-19 16:00] VITALS: BP 143/84
[2020-12-19 19:34] LABS: GLUCOMETER DEV NAME(LOC) 2WR.2B; GLUCOSE,POINT OF CARE 122 MG/DL (70-110)
[2020-12-19 20:23] VITALS: BP 165/87
[2020-12-19] MEDS: PANTOPRAZOLE SODIUM 40 MG DR TABLET PO SCH (20:30)
[2020-12-19] MEDS: ATORVASTATIN CALCIUM 40 MG TABLET PO SCH (20:30)
[2020-12-19] MEDS: INSULIN GLARGINE,HUM.REC.ANLOG 100 UNITS/ML SQ SCH (20:32)
[2020-12-19] MEDS ORDERED: COLD CREAM, SKIN EMOLLIENT 170 GM JAR TP SCH (21:00)
[2020-12-19 21:02] VITALS: BP 122/90
[2020-12-19 22:35] LABS: GLUCOMETER DEV NAME(LOC) 2WR.2B; GLUCOSE,POINT OF CARE 179 MG/DL (70-110)
[2020-12-20 00:30] VITALS: BP 136/82
[2020-12-20 06:13] LABS: GLUCOMETER DEV NAME(LOC) 2WR.1C; GLUCOSE,POINT OF CARE 120 MG/DL (70-110)
[2020-12-20] MEDS: CLOPIDOGREL BISULFATE 75 MG TABLET PO SCH (08:20)
[2020-12-20] MEDS: NIFEdipine 60 MG ER TABLET PO SCH (08:20)
[2020-12-20] MEDS: FUROSEMIDE 20 MG TABLET PO SCH (08:20)
[2020-12-20] MEDS: CALCITRIOL 0.25 MCG CAPSULE PO SCH (08:20)
[2020-12-20] MEDS: HEPARIN SODIUM,PORCINE 5,000 UNITS/ML VIAL SQ SCH (08:20)
[2020-12-20] MEDS: CARVEDILOL 25 MG TABLET PO SCH ×2 (08:20→20:42)
[2020-12-20] MEDS: SEVELAMER CARBONATE 800 MG TABLET PO SCH ×3 (08:21→17:33)
[2020-12-20] MEDS: CITALOPRAM HYDROBROMIDE 10 MG TABLET PO SCH (08:21)
[2020-12-20] MEDS: BACLOFEN 10 MG TABLET PO SCH ×2 (08:21→20:42)
[2020-12-20] MEDS ORDERED: EPOETIN ALFA 10,000 UNITS/ML VIAL SQ ONE (08:30)
[2020-12-20] MEDS ORDERED: ONDANSETRON HCL 4 MG TABLET PO PRN (12:15)
[2020-12-20 13:12] LABS: GLUCOMETER DEV NAME(LOC) 2WR.1C; GLUCOSE,POINT OF CARE 139 MG/DL (70-110)
[2020-12-20 14:29] VITALS: BP 139/81
[2020-12-20 17:39] VITALS: BP 161/91
[2020-12-20 18:31] LABS: GLUCOMETER DEV NAME(LOC) 2WR.1C; GLUCOSE,POINT OF CARE 137 MG/DL (70-110)
[2020-12-20] MEDS: ATORVASTATIN CALCIUM 40 MG TABLET PO SCH (20:42)
[2020-12-20] MEDS: PANTOPRAZOLE SODIUM 40 MG DR TABLET PO SCH (20:42)
[2020-12-20] MEDS: INSULIN GLARGINE,HUM.REC.ANLOG 100 UNITS/ML SQ SCH (21:00)
[2020-12-20] MEDS: INSULIN LISPRO 100 UNITS/ML SQ PRN (21:29)
[2020-12-20 22:26] LABS: GLUCOMETER DEV NAME(LOC) 2WR.1C; GLUCOSE,POINT OF CARE 175 MG/DL (70-110)
[2020-12-20] MEDS: 0.9% SODIUM CHLORIDE 10 ML SYRINGE IVP SCH (23:05)
[2020-12-21] VITALS (7 sets, daily range): BP systolic 138–188; BP diastolic 72–101
[2020-12-21 05:34] LABS: GLUCOMETER DEV NAME(LOC) 2WR.1C; GLUCOSE,POINT OF CARE 149 MG/DL (70-110)
[2020-12-21] MEDS: SEVELAMER CARBONATE 800 MG TABLET PO SCH ×3 (07:30→17:22)
[2020-12-21] MEDS: BACLOFEN 10 MG TABLET PO SCH ×2 (08:06→20:47)
[2020-12-21] MEDS: FUROSEMIDE 20 MG TABLET PO SCH (08:06)
[2020-12-21] MEDS: CALCITRIOL 0.25 MCG CAPSULE PO SCH (08:06)
[2020-12-21] MEDS: 0.9% SODIUM CHLORIDE 10 ML SYRINGE IVP SCH ×3 (08:06→23:14)
[2020-12-21] MEDS: CARVEDILOL 25 MG TABLET PO SCH ×2 (08:06→20:47)
[2020-12-21] MEDS: NIFEdipine 60 MG ER TABLET PO SCH (08:06)
[2020-12-21 08:56] LABS: PROTHROMBIN TIME 10.9 SEC (9.4-11.6)
[2020-12-21] MEDS ORDERED: HEPARIN SODIUM 1000 UNITS/NS 500 ML ONE (09:45)
[2020-12-21] MEDS ORDERED: LIDOCAINE 1%/EPI 1:200,000/PF 10 ML VIAL ONE (09:45)
[2020-12-21] MEDS ORDERED: HEPARIN SODIUM,PORCINE 1,000 UNITS/ML 10 ML VIAL ONE (09:45)
[2020-12-21] MEDS: HydrALAZINE HCL 25 MG TABLET PO PRN ×2 (10:10→17:24)
[2020-12-21] MEDS ORDERED: MIDAZOLAM HCL 2 MG/2 ML VIAL ONE (11:05)
[2020-12-21] MEDS ORDERED: FentaNYL CITRATE PF 100 MCG/2 ML VIAL ONE (11:05)
[2020-12-21] MEDS ORDERED: FentaNYL CITRATE PF 100 MCG/2 ML VIAL IVP ONE (11:30)
[2020-12-21] MEDS ORDERED: MIDAZOLAM HCL 2 MG/2 ML VIAL IVP ONE (12:00)
[2020-12-21] MEDS ORDERED: SODIUM CHLORIDE 0.9% 2,000 ML ONE (13:46)
[2020-12-21 15:04] LABS: GLUCOMETER DEV NAME(LOC) 2WR.1C; GLUCOSE,POINT OF CARE 156 MG/DL (70-110)
[2020-12-21] MEDS ORDERED: ATOR40TA28 PO (15:09)
[2020-12-21] MEDS ORDERED: BACL10TA PO (15:10)
[2020-12-21] MEDS ORDERED: CALC0.25 PO (15:11)
[2020-12-21] MEDS ORDERED: FURO20 PO (15:11)
[2020-12-21] MEDS ORDERED: CARV25 PO (15:11)
[2020-12-21] MEDS ORDERED: INSLAN SQ (15:12)
[2020-12-21] MEDS ORDERED: PANT-31 PO (15:13)
[2020-12-21] MEDS ORDERED: NIFE60TA81 PO (15:13)
[2020-12-21] MEDS ORDERED: HYDR25TA84 PO (15:17)
[2020-12-21] MEDS ORDERED: INSU100V SQ (15:21)
[2020-12-21] MEDS ORDERED: SEVE800T17 PO (15:23)
[2020-12-21] MEDS ORDERED: HEPARIN SODIUM,PORCINE 1,000 UNITS/ML VIAL IVP ONE (17:42)
[2020-12-21] MEDS: INSULIN LISPRO 100 UNITS/ML SQ PRN (17:58)
[2020-12-21] MEDS: PANTOPRAZOLE SODIUM 40 MG DR TABLET PO SCH (20:47)
[2020-12-21] MEDS: ATORVASTATIN CALCIUM 40 MG TABLET PO SCH (20:47)
[2020-12-21] MEDS: INSULIN GLARGINE,HUM.REC.ANLOG 100 UNITS/ML SQ SCH (20:50)
[2020-12-21 20:51] LABS: GLUCOMETER DEV NAME(LOC) 2WR.2B; GLUCOSE,POINT OF CARE 110 MG/DL (70-110)
[2020-12-21 21:10] LABS: GLUCOMETER DEV NAME(LOC) 2WR.1C; GLUCOSE,POINT OF CARE 176 MG/DL (70-110)
[2020-12-22 04:12] VITALS: BP 121/70
[2020-12-22 06:03] LABS: GLUCOMETER DEV NAME(LOC) 2WR.1C; GLUCOSE,POINT OF CARE 113 MG/DL (70-110)
[2020-12-22 07:16] VITALS: BP 156/84
[2020-12-22] MEDS: BACLOFEN 10 MG TABLET PO SCH ×2 (09:25→21:07)
[2020-12-22] MEDS: CARVEDILOL 25 MG TABLET PO SCH ×2 (09:25→21:07)
[2020-12-22] MEDS: FUROSEMIDE 20 MG TABLET PO SCH (09:27)
[2020-12-22] MEDS: NIFEdipine 60 MG ER TABLET PO SCH (09:27)
[2020-12-22] MEDS: SEVELAMER CARBONATE 800 MG TABLET PO SCH ×3 (09:28→17:39)
[2020-12-22] MEDS: CALCITRIOL 0.25 MCG CAPSULE PO SCH (09:28)
[2020-12-22] MEDS: 0.9% SODIUM CHLORIDE 10 ML SYRINGE IVP SCH ×3 (09:30→23:15)
[2020-12-22 09:50] VITALS: BP 159/78
[2020-12-22] MEDS ORDERED: SODIUM CHLORIDE 0.9% 2,000 ML ONE (11:11)
[2020-12-22 12:30] VITALS: BP 188/109
[2020-12-22] MEDS: HydrALAZINE HCL 25 MG TABLET PO PRN (12:46)
[2020-12-22 12:50] LABS: BASOPHILS % (AUTO) 0.5 % (0.0-2.0); EOSINOPHILS % (AUTO) 0.2 % (1.0-6.0); HEMATOCRIT 28.5 % (41-53); HEMOGLOBIN 9.5 g/dL (13.5-17.5); LYMPHOCYTES # (AUTO) 1.2 K/uL (1.0-4.8); LYMPHOCYTES % (AUTO) 14.7 % (22.0-44.0); MEAN CORPUSCULAR HEMOGLOBIN 30.2 pg (26.0-34.0); MEAN CORPUSCULAR HGB CONC 33.2 G/dL (31.0-37.0); MEAN CORPUSCULAR VOLUME 91 fL (80-100); MONOCYTES # (AUTO) 0.7 K/uL (0.1-1.0); MONOCYTES % (AUTO) 9.4 % (2.0-9.0); NEUTROPHILS # (AUTO) 5.9 K/uL (1.8-7.7); NEUTROPHILS % (AUTO) 75.2 % (40.0-70.0); PLATELET COUNT (AUTO) 172 K/uL (150-450); RED BLOOD CELL COUNT(AUTO) 3.14 MIL/uL (4.50-5.90); RED CELL DISTRIBUTION WIDTH 13.8 % (11.5-14.5)
[2020-12-22] MEDS ORDERED: CLOP75TA60 PO (13:01)
[2020-12-22] MEDS ORDERED: CITA10TA99 PO (13:01)
[2020-12-22] MEDS ORDERED: HEPARIN SODIUM,PORCINE 1,000 UNITS/ML VIAL IVP ONE ×3 (13:45→16:47)
[2020-12-22 14:47] LABS: CALCIUM, TOTAL 8.7 mg/dL (8.8-10.5); CREATININE 5.94 mg/dL (0.60-1.30); POTASSIUM 4.2 mmol/L (3.5-5.1)
[2020-12-22 15:24] LABS: GLUCOMETER DEV NAME(LOC) 2WR.1C; GLUCOSE,POINT OF CARE 154 MG/DL (70-110)
[2020-12-22 16:46] VITALS: BP 124/70
[2020-12-22] MEDS: CITALOPRAM HYDROBROMIDE 10 MG TABLET PO SCH (17:39)
[2020-12-22 18:29] LABS: GLUCOMETER DEV NAME(LOC) 2WR.2B; GLUCOSE,POINT OF CARE 99 MG/DL (70-110)
[2020-12-22 20:27] VITALS: BP 140/79
[2020-12-22] MEDS ORDERED: PHOSLOC PO (20:34)
[2020-12-22] MEDS: INSULIN GLARGINE,HUM.REC.ANLOG 100 UNITS/ML SQ SCH (21:05)
[2020-12-22] MEDS: ATORVASTATIN CALCIUM 40 MG TABLET PO SCH (21:07)
[2020-12-22] MEDS: PANTOPRAZOLE SODIUM 40 MG DR TABLET PO SCH (21:07)
[2020-12-22 22:32] LABS: GLUCOMETER DEV NAME(LOC) 2WR.2B; GLUCOSE,POINT OF CARE 132 MG/DL (70-110)
[2020-12-23 01:35] VITALS: BP 157/89
[2020-12-23 06:26] LABS: GLUCOMETER DEV NAME(LOC) 2WR.2B; GLUCOSE,POINT OF CARE 110 MG/DL (70-110)
[2020-12-23] MEDS: FUROSEMIDE 20 MG TABLET PO SCH ×2 (07:45→09:00)
[2020-12-23] MEDS: BACLOFEN 10 MG TABLET PO SCH ×2 (07:45→20:00)
[2020-12-23] MEDS: CITALOPRAM HYDROBROMIDE 10 MG TABLET PO SCH (07:45)
[2020-12-23] MEDS: SEVELAMER CARBONATE 800 MG TABLET PO SCH ×2 (07:45→13:10)
[2020-12-23] MEDS: CARVEDILOL 25 MG TABLET PO SCH ×3 (07:45→20:00)
[2020-12-23] MEDS: CALCITRIOL 0.25 MCG CAPSULE PO SCH (07:45)
[2020-12-23] MEDS: NIFEdipine 60 MG ER TABLET PO SCH ×2 (07:45→09:00)
[2020-12-23 08:01] VITALS: BP 132/77
[2020-12-23] MEDS: 0.9% SODIUM CHLORIDE 10 ML SYRINGE IVP SCH ×2 (08:30→16:00)
[2020-12-23] MEDS ORDERED: CLOPIDOGREL BISULFATE 75 MG TABLET PO SCH (09:00)
[2020-12-23] MEDS ORDERED: SODIUM CHLORIDE 0.9% 2,000 ML ONE (12:26)
[2020-12-23] MEDS: INSULIN LISPRO 100 UNITS/ML SQ PRN (13:16)
[2020-12-23 13:20] LABS: GLUCOMETER DEV NAME(LOC) 2WR.1C; GLUCOSE,POINT OF CARE 158 MG/DL (70-110)
[2020-12-23 16:00] VITALS: BP 145/83
[2020-12-23 17:28] LABS: BASOPHILS % (AUTO) 0.9 % (0.0-2.0); EOSINOPHILS % (AUTO) 0.7 % (1.0-6.0); HEMATOCRIT 27.1 % (41-53); HEMOGLOBIN 8.9 g/dL (13.5-17.5); LYMPHOCYTES # (AUTO) 1.4 K/uL (1.0-4.8); LYMPHOCYTES % (AUTO) 20.5 % (22.0-44.0); MEAN CORPUSCULAR HEMOGLOBIN 30.4 pg (26.0-34.0); MEAN CORPUSCULAR HGB CONC 33.1 G/dL (31.0-37.0); MEAN CORPUSCULAR VOLUME 92 fL (80-100); MONOCYTES % (AUTO) 15.2 % (2.0-9.0); NEUTROPHILS # (AUTO) 4.2 K/uL (1.8-7.7); NEUTROPHILS % (AUTO) 62.7 % (40.0-70.0); PLATELET COUNT (AUTO) 169 K/uL (150-450); RED BLOOD CELL COUNT(AUTO) 2.95 MIL/uL (4.50-5.90); RED CELL DISTRIBUTION WIDTH 13.7 % (11.5-14.5)
[2020-12-23 17:36] LABS: CALCIUM, TOTAL 8.4 mg/dL (8.8-10.5); CREATININE 3.07 mg/dL (0.60-1.30); POTASSIUM 3.4 mmol/L (3.5-5.1)
[2020-12-23 17:41] LABS: PHOSPHORUS 1.8 mg/dL (2.5-4.9)
[2020-12-23] MEDS ORDERED: SODIUM,POTASSIUM PHOSPHATES POWDER PACKET PO ONE (18:15)
[2020-12-23] MEDS: PANTOPRAZOLE SODIUM 40 MG DR TABLET PO SCH (20:00)
[2020-12-23] MEDS: ATORVASTATIN CALCIUM 40 MG TABLET PO SCH (20:00)
[2020-12-23] MEDS: INSULIN GLARGINE,HUM.REC.ANLOG 100 UNITS/ML SQ SCH (20:01)
[2020-12-23 20:48] VITALS: BP 144/86
[2020-12-23] MEDS ORDERED: CHLORHEXIDINE GLUCONATE 4% 118 ML TOPICAL LIQUID TP SCH (21:00)
[2020-12-23] MEDS ORDERED: HEPARIN SODIUM,PORCINE 1,000 UNITS/ML VIAL IVP ONE (21:17)
[2020-12-23 22:12] LABS: GLUCOMETER DEV NAME(LOC) 2WR.1C; GLUCOSE,POINT OF CARE 113 MG/DL (70-110)
== END 2020-12-23 21:15 | disposition home or self-care (01) | DRG 56 ==
LOC: 2WR 13:40
PROVIDERS: ADMIT Physical Medicine & Rehabilitation; ATTEND Physical Medicine & Rehabilitation
DX: I69.354 Hemiplegia and hemiparesis following cerebral infarction affecting left non-dominant side (principal); I63.9 Cerebral infarction, unspecified; R13.10 Dysphagia, unspecified; R47.1 Dysarthria and anarthria; I10 Essential (primary) hypertension; E11.22 Type 2 diabetes mellitus with diabetic chronic kidney disease; N18.9 Chronic kidney disease, unspecified; D64.9 Anemia, unspecified; K21.9 Gastro-esophageal reflux disease without esophagitis
CPT/HCPCS: 36245; 36561; 71045; 74230; 76937; 80048; 80053; 81001; 81002; 81050; 82306; 82575; 82728; 82962; 83540; 83550; 83735; 83970; 84100; 84156; 85014; 85018; 85025; 85610; 85730; 86706; 87081; 87340; 92507; 92508; 92523; 92526; 92611; 93970; 93971; 97032; 97110; 97112; 97116; 97150; 97162; 97167; 97530; 97535; 99366; J0885; J1644; J1815; J2250; J3010; J3490; J7030; Q0162; 36415-L1; 36415-TC

== ENCOUNTER 2021-03-14 05:52 | Emergency (ER) | payer MEDICAID, OTHER ==
[~2021-03-14] VITALS: Ht 175.3 cm; Wt 68.2 kg
[~2021-03-14 05:52] MED LIST: ATOR40TA28 PO; BACL10TA PO; CALC0.25 PO; CARV25 PO; CITA10TA99 PO; CLOP75TA60 PO; FURO20 PO; HYDR25TA84 PO; INSLAN SQ; INSU100V SQ; NIFE60TA81 PO; PANT-31 PO; PHOSLOC PO
[2021-03-14 06:44] LABS: BASOPHILS % (AUTO) 0.7 % (0.0-2.0); EOSINOPHILS % (AUTO) 0.4 % (1.0-6.0); HEMATOCRIT 40.4 % (41-53); HEMOGLOBIN 13.2 g/dL (13.5-17.5); LYMPHOCYTES # (AUTO) 1.1 K/uL (1.0-4.8); LYMPHOCYTES % (AUTO) 15.1 % (22.0-44.0); MEAN CORPUSCULAR HEMOGLOBIN 29.7 pg (26.0-34.0); MEAN CORPUSCULAR HGB CONC 32.7 G/dL (31.0-37.0); MEAN CORPUSCULAR VOLUME 91 fL (80-100); MONOCYTES # (AUTO) 0.7 K/uL (0.1-1.0); MONOCYTES % (AUTO) 8.9 % (2.0-9.0); NEUTROPHILS # (AUTO) 5.4 K/uL (1.8-7.7); NEUTROPHILS % (AUTO) 74.9 % (40.0-70.0); PLATELET COUNT (AUTO) 252 K/uL (150-450); RED BLOOD CELL COUNT(AUTO) 4.45 MIL/uL (4.50-5.90); RED CELL DISTRIBUTION WIDTH 15.9 % (11.5-14.5)
[2021-03-14 06:59] LABS: CREATININE 7.97 mg/dL (0.60-1.30); POTASSIUM 4.7 mmol/L (3.5-5.1)
[2021-03-14 07:00] LABS: CALCIUM, TOTAL 9.6 mg/dL (8.8-10.5)
[2021-03-14] MEDS ORDERED: ONDANSETRON HCL 4 MG/2 ML VIAL IVP ONE (07:00)
[2021-03-14 07:20] LABS: ALBUMIN 4.2 g/dL (3.4-5.0); BILIRUBIN,TOTAL 0.5 mg/dL (0.1-1.0); MAGNESIUM 2.4 mg/dL (1.80-2.40); TOTAL PROTEIN, SERUM 9.1 g/dL (6.4-8.2)
[2021-03-14] MEDS ORDERED: IOHEXOL 350 MG/ML 100 ML VIAL ONE (07:40)
[2021-03-14] MEDS ORDERED: SODIUM CHLORIDE 0.9% 100 ML ONE (07:40)
[2021-03-14 09:31] VITALS: BP 148/64
[2021-03-14 11:01] LABS: BILIRUBIN,URINE NEGATIVE (NEGATIVE); GLUCOSE, URINE (UA) NEGATIVE (NEGATIVE); KETONES,URINE NEGATIVE (NEGATIVE); LEUKOCYTE ESTERASE ,URINE NEGATIVE (NEGATIVE); NITRATE,URINE NEGATIVE (NEGATIVE); OCCULT BLOOD,URINE TRACE (NEGATIVE); PH,URINE 5.5 (5.0-8.0); PROTEIN,URINE SEE CONFIRM (NEGATIVE); UROBILINOGEN,URINE 0.2 mg/dL (<=1.0)
[2021-03-14 11:02] LABS: APPEARANCE,URINE HAZY (CLEAR)
[2021-03-14 11:04] LABS: BACTERIA,URINE None Seen /HPF (None Seen); RBC,URINE 0-2 /HPF (0-2); SULFOSALICYLIC ACID,URINE 3+ (Negative); WBC,URINE None Seen /HPF (0-5)
== END 2021-03-14 12:16 | disposition home or self-care (01) ==
LOC: EMS 06:13
DX: R33.9 Retention of urine, unspecified (principal); I12.0 Hypertensive chronic kidney disease with stage 5 chronic kidney disease or end stage renal disease; E11.22 Type 2 diabetes mellitus with diabetic chronic kidney disease; N18.6 End stage renal disease; Z99.2 Dependence on renal dialysis; Z88.0 Allergy status to penicillin; Z79.899 Other long term (current) drug therapy
CPT/HCPCS: 36415; 51702; 70491; 74177; 80053; 81001; 82550; 83690; 83735; 83880; 84484; 85025; 93005; 96374; 99285; A9575; J2405; J7050; 81002

== ENCOUNTER 2023-02-07 09:00 | Day surgery (SDC) | payer MEDICARE, MEDICAID ==
[~2023-02-07] VITALS: Ht 170.2 cm; Wt 84.1 kg
[~2023-02-07 09:00] MED LIST changes: -NIFE60TA81 PO; +SODIUM CHLORIDE 0.9% 1,000 ML IV ONE; +[UNRECOGNIZED DRUG - CODE] PO
[2023-02-07] MEDS ORDERED: LIDOCAINE/PF 2% 5 ML VIAL IM ONE (09:01)
[2023-02-07] MEDS ORDERED: PROPOFOL 1% 20 ML VIAL IVP ONE (09:01)
[2023-02-07 09:57] LABS: GLUCOMETER DEV NAME(LOC) SDS.
[2023-02-07] MEDS ORDERED: OXYGEN THERAPY IH SCH (10:45)
== END 2023-02-07 12:55 | disposition home or self-care (01) ==
LOC: SURGERY 09:00
PROVIDERS: ATTEND Specialist
DX: K57.30 Diverticulosis of large intestine without perforation or abscess without bleeding (principal); D12.3 Benign neoplasm of transverse colon; D50.9 Iron deficiency anemia, unspecified; K59.00 Constipation, unspecified; I10 Essential (primary) hypertension; D64.9 Anemia, unspecified; E11.9 Type 2 diabetes mellitus without complications; Z79.4 Long term (current) use of insulin; Z86.73 Personal history of transient ischemic attack (TIA), and cerebral infarction without residual deficits; Z79.899 Other long term (current) drug therapy; Z98.890 Other specified postprocedural states
CPT/HCPCS: 45385; 88305; 82962; C1769; J2704; J3490

== ENCOUNTER 2024-01-09 05:42 | Day surgery (SDC) | payer MEDICARE, MEDICAID ==
[~2024-01-09] VITALS: Ht 170.2 cm; Wt 70.0 kg
[~2024-01-09 05:42] MED LIST changes: -BACL10TA PO; -CALC0.25 PO; -FURO20 PO; -HYDR25TA84 PO; -INSU100V SQ; -PHOSLOC PO; -SODIUM CHLORIDE 0.9% 1,000 ML IV ONE; +SODIUM CHLORIDE 0.9% 1,000 ML ONE; -[UNRECOGNIZED DRUG - CODE] PO
[2024-01-09] MEDS: SODIUM CHLORIDE 0.9% 1,000 ML IV ONE (06:42)
[2024-01-09] MEDS ORDERED: OXYGEN THERAPY IH SCH (08:00)
== END 2024-01-09 09:30 | disposition home or self-care (01) ==
LOC: SURGERY 05:42
PROVIDERS: ATTEND Specialist
DX: K21.9 Gastro-esophageal reflux disease without esophagitis (principal); K31.89 Other diseases of stomach and duodenum; R14.0 Abdominal distension (gaseous); K31.A0 Gastric intestinal metaplasia, unspecified; R94.31 Abnormal electrocardiogram [ECG] [EKG]; R10.13 Epigastric pain; I12.0 Hypertensive chronic kidney disease with stage 5 chronic kidney disease or end stage renal disease; E11.22 Type 2 diabetes mellitus with diabetic chronic kidney disease; N18.6 End stage renal disease; E78.00 Pure hypercholesterolemia, unspecified; Z79.4 Long term (current) use of insulin; Z79.899 Other long term (current) drug therapy; Z83.3 Family history of diabetes mellitus; Z98.890 Other specified postprocedural states; Z88.0 Allergy status to penicillin
CPT/HCPCS: 88305; 88312; 88313; 93005; J7030